=== PATIENT | male | born 1995 | race Caucasian/White ===

== ENCOUNTER 2016-09-07 09:52 | Day surgery (SDC) | payer OTHER ==
[~2016-09-07] VITALS: Ht 188 cm; Wt 80.5 kg
[2016-09-07] VITALS (12 sets, daily range): BP systolic 112–157; BP diastolic 44–64; PULSE 62–107; RESP 12–26; Ht 188 cm; Wt 80.5 kg
[2016-09-07] MEDS ORDERED: ROPIVACAINE 0.5 % 30 ML VIAL ONE ×2 (10:56→12:19)
[2016-09-07] MEDS ORDERED: LIDOCAINE 2% (SDV) 5 ML INJ ONE (11:33)
[2016-09-07] MEDS ORDERED: ROCURONIUM 50 MG INJ ONE ×2 (11:33→13:22)
[2016-09-07] MEDS ORDERED: NEOSTIGMINE 3 MG/3 ML SYRINGE ONE ×2 (11:33→13:22)
[2016-09-07] MEDS ORDERED: GLYCOPYRROLATE 0.4 MG INJ ONE (11:33)
[2016-09-07] MEDS ORDERED: PROPOFOL 20 ML ONE (11:33)
[2016-09-07] MEDS ORDERED: SUCCINYLCHOLINE CHLORIDE 100 MG/5 ML SYG IV ONE (11:33)
[2016-09-07] MEDS ORDERED: SOD CHLORIDE 0.9% 1,000 ML IV SCH (12:07)
[2016-09-07] MEDS ORDERED: GELATIN SIZE 100 SPONGE ONE (12:19)
[2016-09-07] MEDS ORDERED: POVIDONE IODINE 10% 28.4 GM OINT ONE (12:20)
[2016-09-07] MEDS ORDERED: THROMBIN 5000 UNIT VIAL ONE (12:21)
[2016-09-07] MEDS ORDERED: CA CHLORIDE 10% 10 ML SYRINGE ONE (12:24)
[2016-09-07] MEDS ORDERED: morphine 2 MG INJ IV PRN (12:30)
[2016-09-07] MEDS ORDERED: ONDANSETRON 4 MG INJ IV PRN ×2 (12:30→16:30)
[2016-09-07] MEDS ORDERED: OXYCODONE/ACETAMINOPHEN (5/325) TAB PO PRN ×2 (12:30)
[2016-09-07] MEDS ORDERED: HEPARIN 1000 UNITS/ML 10 ML INJ ONE (12:59)
[2016-09-07] MEDS ORDERED: CEFAZOLIN 1 GM INJ ONE ×2 (13:21→15:32)
[2016-09-07] MEDS ORDERED: GLYCOPYRROLATE 1 MG INJ ONE (13:22)
[2016-09-07] MEDS ORDERED: POLYMYXIN/BACITRACIN 1L IRRIG IRR ONE (13:31)
[2016-09-07] MEDS ORDERED: FENTAnyl 50 MCG/ML VIAL ONE (14:32)
[2016-09-07] MEDS ORDERED: ONDANSETRON 4 MG INJ ONE (15:25)
--- NOTE | 2016-09-07 15:51 | RADRPT ---
PROCEDURE: Intraoperative imaging of the right foot with fluoroscopy. CLINICAL INDICATION: Right foot pain. Intraoperative. TECHNIQUE: 18 images of the right foot were obtained in the operating room with an image intensifi er. No radiologist was in attendance. 0.8 minutes of fluoroscopy time was used. COMPARISON: No prior study is available for comparison. FINDINGS: Images demonstrate surgical instruments overlying the right foot. IMPRESSION: 1. Intraoperative imaging of the right foot. RPTAT: QQ .González Barrera MD, MD Date Time Electronically viewed and signed by .González Barrera MD, MD on 09/07/2016 15:51 .R/
[2016-09-07] MEDS ORDERED: LABETALOL HCL 20MG INJ ONE (16:10)
[2016-09-07] MEDS ORDERED: EPHEDrine SULFATE 50 MG/5 ML SYG IV PRN (16:30)
[2016-09-07] MEDS ORDERED: MEPERIDINE 25 MG INJ IV PRN (16:30)
[2016-09-07] MEDS ORDERED: HYDROmorphONE (0.2 MG/ML) 10ML SYG IV PRN ×2 (16:30)
[2016-09-07] MEDS ORDERED: hydrALAzine 20 MG INJ IV PRN (16:30)
[2016-09-07] MEDS ORDERED: morphine (1 MG/ML) 10ML SYRINGE IV PRN ×2 (16:30)
[2016-09-07] MEDS ORDERED: DIPHENHYDRAMINE 50 MG INJ IV PRN (16:30)
[2016-09-07] MEDS ORDERED: MIDAZOLAM 1 MG/ML 2 ML INJ IV PRN (16:30)
[2016-09-07] MEDS ORDERED: LABETALOL HCL 20MG INJ IV PRN (16:30)
[2016-09-07] MEDS ORDERED: FENTAnyl 50 MCG/ML VIAL IV PRN ×2 (16:30)
[2016-09-07] MEDS ORDERED: METOCLOPRAMIDE 10 MG INJ IV PRN (16:30)
--- NOTE | 2016-09-07 18:24 | OPR ---
DATE OF OPERATION: 09/07/2016 PREOPERATIVE DIAGNOSIS: Nonunion stress fracture, right navicular. POSTOPERATIVE DIAGNOSIS: Nonunion stress fracture, right navicular. PROCEDURE: 1. Take down and excision nonunion, right navicular nonunion fracture. 2. Iliac crest bone graft to the nonunion of the navicular. 3. Bone marrow aspirate to the nonunion of the navicular fracture with Augment bone graft substance . 4. Open reduction internal fixation, right navicular nonunion fracture. 5. Use of fluoroscopy to verify position and alignment of the guide pins, nonunion site and screws. 6. Short-leg cast. SURGEON: Yennifer Enciso MD [employer]: Alverto Enciso MD SECOND CLAIMS AGENT RIGHT OF WAY: Felicita Ivey MD ANESTHESIA: General with popliteal block. TOURNIQUET TIME: 117 minutes. DESCRIPTION OF PROCEDURE: The patient taken to the operating room and placed in supine position. S atisfactory popliteal block was given. Satisfactory general anesthesia was administered, 2 grams An cef given intravenously. The right lower extremity including the iliac crest was prepped and draped in usual manner, and a tourniquet was used as well. Attention was then turned first to the iliac crest. We made a small incision over the iliac crest through skin and subcutaneous tissue. Using the speci al needle, 60 mL of bone marrow aspirate was obtained, given to the cash application representative to spin it down t o 5 to 7 mL and placed on the back table. A trap door was then made after releasing the fascia ante riorly and posteriorly along the iliac crest. Trap door was made with a saw and osteotome. Additio nal iliac crest bone was then obtained. Iliac crest wounds were then packed with thrombin-soaked Ge lfoam. The area was covered. Gloves were changed. All new instruments were used. Incision was made on the dorsum of the foot. We made this incision by [facility]. They marked exactly where the fracture was. We then ma de an incision from the talonavicular joint to naviculocuneiform joint over this incision. Dissecti on carried down to subcutaneous tissue. Superficial peroneal nerve branch was retracted laterally a nd carefully elevated out of the field. The retinaculum was released. We pulled the extensor hallu cis longus medially. Neurovascular bundle was right underneath. We mobilized the neurovascular bun dle distally and proximally using extreme caution and then retracted medially. Once we were down to bone, we could feel the osteophytes and calcifications where the joint had broken. The capsule was opened and lifted up off the navicular in the area of the fracture. A rongeur was used to remove a ll osteophytes and loose bodies from the talus and navicular joint. the foot, we could see wh ere the fracture was. We used a very small curet to curet out all the fibrous material on the nonun ion site from the talonavicular joint to the naviculocuneiform joint, and went down as far deep as w caitlyn felt we needed to to get rid of all the fibrous material. Fluoroscopy was used throughout the pro cedure to facilitate localizing our fracture line. A bur was used to lightly abrade the bone in the nonunion site and then multiple drill holes were made with 0.045 K-wire to facilitate bleeding. A small incision was then made lateral to the end of the navicular in the interval between the navicul ar and the cuboid. Dissection carried down to subcutaneous tissue. Extensor tendons were retracted dorsally. Went down to bone along the edge of the navicular. Guide pin from the 4.0 AO cannulated screw set was then inserted from dorsal lateral to plantar medial staying across the fracture, chec ked in AP and lateral planes and looked to be in excellent position. A second pin was placed more d orsally and going from dorsal lateral to plantar medial parallel to the first pin. Both pins were c hecked in AP and lateral planes and looked to be in good position. The second more dorsal pin could be seen through the nonunion site more toward the bottom of it. Iliac crest bone graft was then mi xed with some bone marrow aspirate and also the Augment was then packed tightly on the bottom of our nonunion site and then above it. The guide pins were then drilled the full length and partially ta pped and 34 mm x 16 mm 4.0 AO cannulated screws were inserted. Excellent fixation was obtained. Re maining bone graft mixture with the bone marrow aspirate and Augment was then packed into the nonuni on site, tried to keep it away from the actual talus itself, impacted onto the end of the navicular. Final fluoroscopic views in AP and lateral position showed good position and alignment of the scre ws. The fracture site was completely filled with bone marrow. The wounds irrigated with antibiotic solution. The dorsal wound extensor retinaculum and soft tissue was closed with 3-0 PDS over the t endon and also soft tissue over the nonunion site. The tourniquet was released, bleeders were coagu lated, and wounds irrigated repeatedly with antibiotic solution. The subcutaneous tissue was closed with a couple 3-0 undyed Vicryl and the skin with 4-0 black nylon interrupted mattress sutures. Th e more lateral incision was irrigated with antibiotic solution and closed with 4-0 black nylon inter rupted. We could not palpate the pulse with our gloves on, but the toes were pink and looked good. Simultaneously, the iliac crest was approached with clean gloves. The thrombin-soaked Gelfoam was r emoved. Wounds were irrigated with antibiotic solution. The fascia was closed with a running 0 PDS . Subcutaneous tissue was closed with 3-0 undyed Vicryl and the skin with a running 3-0 subcuticula r Prolene. Steri-Strips were applied as well as compression dressing and Tegaderm. A compression dressing was applied over the foot after the saphenous nerve was blocked with 0.5% rop ivacaine. The remaining bone marrow aspirate was also injected around the nonunion site subcutaneou sly. Compression dressing was then applied, and a short-leg cast in neutral position. At the end o f procedure, sponge and needle count was correct. Patient tolerated procedure well. CLAIMS AGENT RIGHT OF WAY ORTHOPEDIC SURGEON: During the procedure, an retail store assistant orthopedic surgeon was used at my request. The retail store assistant helped with facilitating retraction, doing the bone graft and assisting with the screw insertion. Without a skilled retail store assistant present, this case would have been much more diff icult to do and, therefore, should be compensated appropriately. Dictated By: YENNIFER ENCISO MD RF/OZZY Conf#: [id number] DID#: [id number]
--- NOTE | 2016-09-07 22:56 | OPR ---
DATE OF OPERATION: 09/07/2016 ADDENDUM Modifier 22 because of the complex nature of the patient's surgery and the altered anatomy, an ashwin tional 45 minutes of time was spent finding the nonunion site, excising the nonunion, and then placi ng bone graft into the nonunion area (22). Dictated By: YENNIFER ENCISO MD RF/NTS Conf#: [id number] DID#: [id number]
== END 2016-09-07 19:03 | disposition home or self-care (01) ==
LOC: SDS 09:52
PROVIDERS: ATTEND Orthopaedic Surgery
DX: S92.251K Displaced fracture of navicular [scaphoid] of right foot, subsequent encounter for fracture with nonunion (principal); X58.XXXD Exposure to other specified factors, subsequent encounter
CPT/HCPCS: 28465; 73630; 86999; C1713; J0330; J0690; J1644; J2405; J2710; J2795; J3010